=== PATIENT | female | born 1965 | race Caucasian/White ===

== ENCOUNTER 2020-08-18 14:43 | Emergency (ER) | payer OTHER, BC, SELFPAY ==
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
[2020-08-18 14:39] VITALS: BP 173/100; PULSE 93; RESP 14; TEMP 36.8; O2SAT 98
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
[2020-08-18] MEDS: HYDROcodone/acetaminophen (*CRX) 5-325 MG TABLET 1 TAB PO (15:59)
[2020-08-18 16:14] VITALS: BP 157/68; PULSE 78; RESP 12; O2SAT 99
== END 2020-08-18 16:15 | disposition home or self-care (01) ==
PROVIDERS: Emergency Provider Emergency Medicine
DX: S52.045A Nondisplaced fracture of coronoid process of left ulna, initial encounter for closed fracture (principal); S50.12XA Contusion of left forearm, initial encounter; V49.40XA Driver injured in collision with unspecified motor vehicles in traffic accident, initial encounter
CPT/HCPCS: 73080; 73090; 99284; A4565; A9270